=== PATIENT | male | born 1975 | race American Indian/Alaskan Native ===

== ENCOUNTER 2021-07-18 21:59 | Emergency (ER) | payer OTHER ==
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
[2021-07-18 22:34] VITALS: BP 149/97
== END 2021-07-18 23:17 ==
LOC: ED 21:59
DX: Z00.00 Encounter for general adult medical examination without abnormal findings (principal); V89.2XXA Person injured in unspecified motor-vehicle accident, traffic, initial encounter; Y93.89 Activity, other specified; Y92.89 Other specified places as the place of occurrence of the external cause; Y99.8 Other external cause status
CPT/HCPCS: 99282